=== PATIENT | male | born 1945 | race Caucasian/White ===

== ENCOUNTER → 2017-02-17 | Outpatient (CLI) | payer MEDICARE, BC ==
[~2017-02-17] MED LIST: ARTHRITIS MED; CARAFATE 1GM1 G PO; CARDIZEM CD 18180 MG PO; CIPRO 500MG TA500 MG PO; FLOMAX 0.40.4 MG/CAP PO; INDOCIN 25MG CA25 MG PO; LORTAB 10/500 51 TAB PO; NEXIUM 40MG40 MG PO; NORCO 325 MG-101 TAB PO; OXYCONTIN 20MG20 MG PO; PAMELOR 25MG25 MG PO; PRILOTC; ROXICODONE 55 MG/TAB PO; RT SPIRIVA18 MCG IH; VOLTAREN 75 DR75 MG PO
== END ==
LOC: COL.CARD 13:21
DX: R00.2 Palpitations (principal); I49.3 Ventricular premature depolarization

== ENCOUNTER 2021-11-24 11:48 | Day surgery (SDC) | payer MEDICARE, BC, OTHER ==
[~2021-11-24] VITALS: Ht 177.8 cm; Wt 70.9 kg
--- NOTE | 2021-11-24 12:00 | NUR ---
76 Year old male admitted to [facility]6 via ambulation, using a wooden cane and a weak gait. The patient is alert and oriented. Vitals obtained. Medications and HX reviewed with the patient and his friend Tammie. The patient did not know why he was here at [facility] and did not know anything about the procedure. His friend Tammie, states that he is very forgetful and may have "some dementa". Next of kin Susan Clifton, his daughter was contacted with regards to the consent. Verbal consent obtained over the phone (#[phone]) by RONY Wade and RONY Lui. First and last name + verified with the Susan and the patient prior to the verbal consent, along with a full review of the consent. Warm blanket provided. Non-slip socks are on. Side rails x2. IV was started in L forearm on first attempt with 20G. IVF scanned and are infusing without difficulty. IV pepcid administered. Side affects reviewed. Medication scanned. Call martinez is within reach at bedside. Glasses removed.
[2021-11-24] MEDS ORDERED: NAMENDA 10MG TA10 MG PO (12:59)
[2021-11-24] MEDS ORDERED: MYRBETR50MG PO (12:59)
[2021-11-24 13:00] VITALS: BP 138/82; PULSE 74; TEMP 97.3
[2021-11-24] MEDS ORDERED: ARICEPT 5MG PO (13:00)
--- NOTE | 2021-11-24 13:00 | NUR ---
The patient was taken back to the OR.
[2021-11-24] MEDS ORDERED: NORCO 325 MG-51 TAB PO (13:02)
[2021-11-24 15:15] VITALS: BP 186/87; PULSE 61; TEMP 97.3
--- NOTE | 2021-11-24 15:15 | NUR ---
Patient arrived from PACU alert and oriented. Vitals obtained. BP is elevated, however the patient states having a sore throat and dry cough. He is very talkative. Patient requested warm tea and applesauce. Call martinez is within reach. Side rails x1. Tammie, his friend is present. x3 lap sites are clean, dry and intact. No visible drainage.
[2021-11-24 15:30] VITALS: BP 173/87; PULSE 71
--- NOTE | 2021-11-24 15:30 | NUR ---
Vitals obtained. The patient denies nausea. No vomiting. Call martinez remains in reach. The patient is conversing with Tammie.
[2021-11-24 15:45] VITALS: BP 156/92; PULSE 68
--- NOTE | 2021-11-24 15:45 | NUR ---
Vitals obtained. His blood pressure has come down and is within 20 points of his admission BP. Patient expressed desire to be discharged. The patient was assisted to bedside and was able to ambulate to the bathroom. His gait is weak and a walker was used. However, the patient was able to successfully void. Then back to bed. Call martinez is within reach.
--- NOTE | 2021-11-24 16:00 | NUR ---
IV was discontinued. Catheter tip intact. Pressure dressing applied. No swelling or redness noted at site. DC instructions and educational material was reviewed. The patient and Tammie verbalized understanding of the material and the patient signed the realted paperwork. Follow up appointment care provided with date/time. The patient was then minimally assisted with changing into his personal clothes. PO pain medication administered. The patient was then escorted out to the main patient entrence via wheelchair to the patient entrence by RONY Wade. The patient has his personal belongings. Tammie has the DC instruction packet in the white patient belongings bag in hand. The patient was transferred into [facility]'s truck, which has a built in wheelchair lift. The patient ambulated from our wheelchair to the front seat and was transferred into his care at this time.
== END 2021-11-24 16:35 | disposition home or self-care (01) ==
LOC: SDCO 11:48
DX: K40.90 Unilateral inguinal hernia, without obstruction or gangrene, not specified as recurrent (principal); Z87.891 Personal history of nicotine dependence
CPT/HCPCS: C1781; J0690; J1100; J1885; J2405; J2704; J3010; J7120